=== PATIENT | female | born 1955 | race Asian ===

== ENCOUNTER 2025-01-01 13:14 | Inpatient (IN) | payer BC ==
[2025-01-01] MEDS ORDERED: ACETAMINOPHEN INJECTION 100 ML ONE (15:29)
[2025-01-01] MEDS: ACETAMINOPHEN 1000 MG/100 ML BAG IVPB ONE (15:33)
[2025-01-01] MEDS: SODIUM CHLORIDE 0.9% 500 ML INFUS.BAG IV ONE (15:34)
[2025-01-01] MEDS: LIDOCAINE 5% TOPICAL PATCH TP ONE (15:34)
[2025-01-01 15:51] LABS: ABSOLUTE IMMATURE GRANULOCYTES 0.01 x10^3/uL (0.0-0.031); BASOPHILS # 0.02 x10^3/uL (0.01-0.08); EOSINOPHIL % 2.6 % (0.7-5.8); EOSINOPHILS # 0.10 x10^3/uL (0.04-0.36); MCHC 34.1 g/dl (32.2-35.5); MEAN CELL VOLUME 108.5 fl (79.4-94.8); MEAN PLT VOLUME 9.6 fl (9.4-12.3); MONOCYTE # 0.18 x10^3/uL (0.24-0.86); MONOCYTE % 4.7 % (4.7-12.5); RDW 14.6 % (12.4-16.4)
[2025-01-01 16:21] LABS: GLUCOSE,RANDOM 115.0 mg/dL (74-106)
[2025-01-01 16:22] LABS: TOT PROT 7.1 g/dl (6.4-8.2)
[2025-01-01 16:23] LABS: CO2 26.0 mmol/L (21-32)
[2025-01-01 16:24] LABS: ALK PHOS 77.0 U/L (40-150)
[2025-01-01 16:27] LABS: CREATININE 0.67 mg/dL (0.55-1.3); SGOT/AST 30.0 U/L (5-34); SGPT/ALT 21.0 U/L (0-55)
[2025-01-01] MEDS: KETOROLAC TROMETHAMINE 30 MG/1 ML VIAL IM ONE (20:13)
[2025-01-01] MEDS ORDERED: KETOROLAC TROMETHAMINE 30 MG/1 ML VIAL ONE (20:15)
[2025-01-01] MEDS ORDERED: LIDOCAINE 5% TOPICAL PATCH ONE (20:16)
[2025-01-01] MEDS: LIDOCAINE PATCH REMOVAL MC ONE (21:42)
[2025-01-02 02:44] VITALS: RESP 18; BMI 20.3
[2025-01-02] MEDS: ENOXAPARIN NA (PORCINE) 30 MG/0.3 ML DISP.SYRIN SQ SCH (05:46)
[2025-01-02] MEDS: LIDOCAINE 5% TOPICAL PATCH TP SCH (06:11)
[2025-01-02 08:43] LABS: ABSOLUTE IMMATURE GRANULOCYTES 0.00 x10^3/uL (0.0-0.031); BASOPHILS # 0.03 x10^3/uL (0.01-0.08); EOSINOPHIL % 7.3 % (0.7-5.8); EOSINOPHILS # 0.24 x10^3/uL (0.04-0.36); MCHC 32.7 g/dl (32.2-35.5); MEAN CELL VOLUME 108.2 fl (79.4-94.8); MEAN PLT VOLUME 9.2 fl (9.4-12.3); MONOCYTE # 0.17 x10^3/uL (0.24-0.86); MONOCYTE % 5.2 % (4.7-12.5); RDW 14.6 % (12.4-16.4)
[2025-01-02 09:06] LABS: GLUCOSE,RANDOM 112.0 mg/dL (74-106)
[2025-01-02 09:07] LABS: TOT PROT 6.9 g/dl (6.4-8.2)
[2025-01-02 09:08] LABS: CO2 27.0 mmol/L (21-32)
[2025-01-02 09:09] LABS: ALK PHOS 75.0 U/L (40-150)
[2025-01-02 09:12] LABS: CREATININE 0.68 mg/dL (0.55-1.3); SGOT/AST 29.0 U/L (5-34); SGPT/ALT 19.0 U/L (0-55)
[2025-01-02] MEDS: ENOXAPARIN NA (PORCINE) 40 MG/0.4 ML DISP.SYRIN SQ SCH (10:02)
[2025-01-02] MEDS: PANTOPRAZOLE 40 MG TABLET PO SCH (11:24)
[2025-01-02] MEDS: ACETAMINOPHEN 500 MG TABLET (FP) PO SCH (11:24)
[2025-01-02] MEDS: SODIUM CHLORIDE 1,000 ML IV SCH (11:41)
[2025-01-02] MEDS: NAPROXEN 250 MG TABLET PO SCH (12:05)
[2025-01-02] MEDS: LIPASE/PROTEASE/AMYLASE 24,000 UNIT CAPSULE PO SCH (12:06)
[2025-01-02] MEDS: TENOFOVIR DISOPROXIL FUMARATE 300 MG TABLET PO SCH (12:07)
[2025-01-02] MEDS: LIDOCAINE PATCH REMOVAL MC SCH (17:05)
[2025-01-02] MEDS: SERTRALINE HCL 25 MG TABLET (FP) PO SCH (21:07)
[2025-01-03] MEDS: MAG HYDROX/AL HYDROX/SIMETH 30 ML UNIT-DOSE CUP PO ONE (06:08)
[2025-01-03] MEDS: FLUDROCORTISONE ACETATE 0.1 MG TABLET (FP) PO SCH (09:55)
[2025-01-03 15:26] VITALS: BP 121/67; PULSE 98; TEMP 97.5
== END 2025-01-03 15:37 | disposition home or self-care (01) | DRG 312 ==
LOC: JER 13:14 → JERBED 21:37 → J6S 23:11 → OBSVTOIN 01-02 00:59
PROVIDERS: ADMIT Student in an Organized Health Care Education/Training Program; ATTEND Internal Medicine
DX: I95.1 Orthostatic hypotension (principal); D61.811 Other drug-induced pancytopenia; E78.00 Pure hypercholesterolemia, unspecified; E78.5 Hyperlipidemia, unspecified; M06.862 Other specified rheumatoid arthritis, left knee; S39.012A Strain of muscle, fascia and tendon of lower back, initial encounter; K21.9 Gastro-esophageal reflux disease without esophagitis; M54.89 Other dorsalgia; T45.1X5A Adverse effect of antineoplastic and immunosuppressive drugs, initial encounter; W18.30XA Fall on same level, unspecified, initial encounter; Y93.9 Activity, unspecified; Y92.9 Unspecified place or not applicable; Y99.9 Unspecified external cause status
CPT/HCPCS: 36415; 70450-TC; 72125-TC; 72131-TC; 72170-TC-FY; 73502-TC-RT-FY; 80053; 82962; 83735; 84100; 84439; 84443; 84481; 84484; 85025; 93005; 93010; 99285-25; G0378